=== PATIENT | male | born 1950 ===

== ENCOUNTER → 2018-01-30 07:25 | Outpatient (CLI) | payer MEDICARE, BC | END | disposition home or self-care (01) | LOC: D.MRI 07:25 | DX: M54.12 Radiculopathy, cervical region (principal) ==

== ENCOUNTER → 2018-02-04 12:01 | Outpatient (CLI) | payer MEDICARE, BC | END | disposition home or self-care (01) | LOC: D.US 12:01 | DX: I65.23 Occlusion and stenosis of bilateral carotid arteries (principal) ==

== ENCOUNTER → 2018-02-06 13:50 | Outpatient (CLI) | payer MEDICARE, BC | END | disposition home or self-care (01) | LOC: D.CT 13:50 | DX: R22.1 Localized swelling, mass and lump, neck (principal) ==

== ENCOUNTER → 2018-02-20 10:19 | Outpatient (CLI) | payer MEDICARE, BC | END | disposition home or self-care (01) | LOC: D.CT 10:19 | DX: R91.8 Other nonspecific abnormal finding of lung field (principal) ==

== ENCOUNTER 2018-11-26 07:12 | Day surgery (SDC) | payer MEDICARE, BC ==
[~2018-11-26] VITALS: Ht 193 cm; Wt 103.9 kg
[~2018-11-26 07:12] MED LIST: ADVAIR HFA 230-12 GM INH; COZAAR50 MG PO; TOPROL XL50 MG PO
[2018-11-26 07:34] LABS: BASOPHILS 1.1 % (0-2); EOSINOPHILS 4.8 % (0-7); HEMATOCRIT 42.5 % (42.0-54.0); HEMOGLOBIN 14.3 g/dL (13.5-17.5); IMMATURE GRANULOCYTES 0.2 % (0-5); LYMPHOCYTES 28.6 % (15-50); MCH 29.2 pg (26.0-34.0); MCHC 33.6 g/dL (31.0-37.0); MCV 86.9 fL (80.0-100.0); MEAN PLATELET VOLUME 8.5 fL (7.4-10.4); MONOCYTES 7.7 % (2-11); NEUTROPHILS 57.6 % (40-80); RBC 4.89 10x6/uL (4.20-6.10); RDW 13.7 % (11.5-14.5); WBC 4.4 10x3/uL (4.8-10.8)
[2018-11-26 07:56] LABS: PLATELET COUNT 203 10x3/uL (130-400)
[2018-11-26 08:06] LABS: APTT 27.9 SECONDS (22.8-39.4); INR 1.02 (0.85-1.17); PROTIME 12.9 SECONDS (11.6-15.0)
[2018-11-26 08:54] VITALS: BP 134/83; Ht 193 cm; Wt 103.9 kg
--- NOTE | 2018-11-26 10:50 | NUR ---
REC'D ROM SURGERY. FL TRAY BROUGHT TO PATIENT. NO FAMILY AT BEDSIDE. URINAL BROUGHT TO PATIENT.
--- NOTE | 2018-11-26 11:20 | NUR ---
TOLERATING FL TRAY. COFFEE BROUGHT TO PT. RELATES WILL HAVE TO CALL HIS TO PICK HIM UP.
--- NOTE | 2018-11-26 11:25 | NUR ---
DC'D HOME WITH FAMILY VIA PRIVATE VEHICLE. TAKEN TO VEHICLE VIA WC. STABLE AT TIME OF DC.
--- NOTE | 2018-11-26 11:31 | OP ---
PATIENT NAME: STEVENSON MAYEN MEDICAL RECORD: [id number] :54 LOCATION:[facility] ADMISSION DATE: SURGEON: ROMI MATT MD DATE OF OPERATION: 11/26/2018 SURGEON: Romi Matt MD ANESTHESIA: TIVA by Omer Snider CRNA. DIAGNOSES: Obstructive BPH. PSA is 3.07. CHRIS gives a 20 gram prostate. IPSS score is 12, quality of life score is 5. FINDINGS: Previous resection of the lateral lobes. 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 PROCEDURE: UroLift times 4 in the box configuration. BLOOD LOSS: None. CLINICAL HISTORY: This is a 68-year-old male, who has a previous history of a laser ablation of the prostate 10 years ago. Now, he has been complaining of a poor urinary stream for the past 6 months. His latest PSA was 0.37 in October of 2018. He has hesitancy in getting started and the flow is weak. He has dribbling postvoid and he feels empty after voiding. His IPSS score is 12, quality of life score is 5. He comes today to have the UroLift procedure done. He is not allergic to any medications. 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 DESCRIPTION OF PROCEDURE: The patient was given IV sedation. He was then placed into dorsal lithotomy position and prepped and draped. The UroLift scope was introduced. The findings are as outlined above. As the hanging anterior material is mainly obstructive at the bladder neck level, we concentrated our UroLift implants at the bladder neck level. At the anterior lateral lobes, I scooped upwards to place the implants in about the 1 o'clock and 11 o'clock positions. This lifted up that portion of the anterior lateral lobes. I then placed 2 more implants at the bladder neck level about 1.5 cm distal to the bladder neck at about the mid prostate level. This helped to open up a nice rectangular box of the bladder neck and opened up the bladder neck entirely. There was no bleeding at all and the bladder was emptied through the scope and then the scope was removed. I will see him in followup in 1 months' time. TRANSINT:[id number] Voice Confirmation ID: [id number] DOCUMENT ID: [id number] ROMI MATT MD at 1132 CC: [id number] DICTATION DATE: 11/26/18 1055 TEAM DRIVER: 11/26/[address] [facility] [address] [id number]
--- NOTE | 2018-11-26 11:40 | NUR ---
CALLED PATIENT'S THAT PATIENT WILL BE READY TO LEAVE WHEN SHE GETS HERE.
--- NOTE | 2018-11-26 11:50 | NUR ---
IV DC'D WITH CATHETER INTACT.
--- NOTE | 2018-11-26 11:55 | NUR ---
WRITTEN AND VERBAL DC INST. GIVEN TO PATIENT. VERBALIZED UNDERSTANDING.
== END 2018-11-26 11:25 | disposition home or self-care (01) ==
LOC: D.OPS 07:12 → D.PAN 09:00 → D.OPS 09:00
PROVIDERS: Anesthesiology; ATTEND Urology
DX: N40.1 Benign prostatic hyperplasia with lower urinary tract symptoms (principal); N13.8 Other obstructive and reflux uropathy; R39.11 Hesitancy of micturition; R39.12 Poor urinary stream; Z01.812 Encounter for preprocedural laboratory examination